=== PATIENT | male | born 1985 | race Caucasian/White ===

== ENCOUNTER 2019-09-05 00:21 | Emergency (ER) | payer SELFPAY ==
[~2019-09-05] VITALS: Ht 177.8 cm; Wt 108.0 kg
[2019-09-05 00:28] VITALS: Ht 177.8 cm; Wt 108.0 kg
[2019-09-05 02:02] VITALS: BP 123/63
== END 2019-09-05 02:03 | disposition home or self-care (01) ==
LOC: ED 00:21
DX: S01.01XA Laceration without foreign body of scalp, initial encounter (principal); F10.129 Alcohol abuse with intoxication, unspecified; Y04.8XXA Assault by other bodily force, initial encounter; Y93.89 Activity, other specified; Y92.89 Other specified places as the place of occurrence of the external cause; Y99.8 Other external cause status